=== PATIENT | female | born 1965 | race Two or more races ===

== ENCOUNTER → 2016-08-21 | Outpatient (CLI) | payer OTHER | LOC: BMCIMAGING 14:41 | PROVIDERS: ATTEND Family Medicine | DX: Z12.31 Encounter for screening mammogram for malignant neoplasm of breast (principal) | CPT/HCPCS: G0202 ==

== ENCOUNTER 2016-11-12 11:44 | Emergency (ER) | payer OTHER ==
--- NOTE | 2016-11-12 13:17 | CPEKG ---
Heart Rate: 54 RR Interval: 1111 P-R Interval: 160 QRSD Interval: 78 QT Interval: 420 QTC Interval: 398 P Marion: 54 QRS Marion: -70 T Wave Marion: 17 EKG Severity - ABNORMAL ECG - EKG Impression: SINUS RHYTHM EKG Impression: LEFT ANTERIOR FASCICULAR BLOCK Electronically Signed By: Danis Harris 12-Nov-2016 22:16:44
--- NOTE | 2016-11-12 13:34 | EDPHY ---
H & P Time Seen by Provider: 11/12/16 13:34 HPI/ROS: Chief complaint. Dizzy HPI. 51-year-old female presents emergency department with sense of dizziness. This is been going on for several weeks. She does have some sense of movement. She also feels that it got worse she could pass out. Her dizziness does seem to be worse with position and head movement. She also notes over the past several weeks cold hands, fatigue, occasionally shaky, occasionally weak. Denies fever cough. Some sense of chest fullness but. No shortness of breath. Abdominal no unusual leg symptoms. No fever cough she did return from [place] 4 days ago with but her symptoms were preceding her trip. No similar symptoms previously. She did recently get a new contact lens prescription an wonders if this could cause her dizziness however she has dizziness even when she has removed her new contacts. ROS Constitutional. Occasional weakness Eyes. no problems with vision ENT. no sore throat, no nasal drainage Cardiovascular. Chest fullness Respiratory. No shortness of breath Abdominal. no abdominal pain, no nausea/vomiting, no diarrhea . no problems urinating MS. no calf pain/swelling, no neck/back pain, no joint pain Skin. no rash Lymph. no swollen glands Neuro. Dizziness Past Medical/Surgical History: Hypothyroid Family history significant for autoimmune disease, hypertension, diabetes Social History: , nonsmoker, no alcohol Smoking Status: Never smoked Physical Exam: General Appearance: Alert pleasant well-developed female mild distress vital signs are stable Eyes: Pupils equal and round no pallor or injection. ENT, Mouth: Mucous membranes are moist. Respiratory: There are no retractions, lungs are clear to auscultation. Cardiovascular: Regular rate and rhythm. Gastrointestinal: Abdomen is soft and nontender, no masses, bowel sounds normal. Neurological: Awake and alert, sensory and motor exams grossly normal. Skin: Warm and dry, no rashes. Musculoskeletal: Neck is supple nontender. Extremities symmetrical, full range of motion. Psychiatric: Patient is oriented X 3, there is no agitation. Constitutional: Initial Vital Signs Temperature (C) 36.8 C 11/12/16 11:49 Heart Rate 65 11/12/16 11:49 Respiratory Rate 20 11/12/16 11:49 Blood Pressure 147/85 H 11/12/16 11:49 O2 Sat (%) 98 11/12/16 11:49 O2 Delivery Mode Room Air Allergies/Adverse Reactions: tetracycline Allergy (Verified 11/12/16 11:46) Home Medications: Medication Instructions Recorded ARMMARINO THYROID 11/12/16 Medical Decision Making - Diagnostics EKG Interpretation: EKG interpreted by me shows normal sinus rhythm with normal interval. There is left axis deviation and left anterior fascicular block pattern. QRS is otherwise normal. No significant ST elevation or depression. No arrhythmia. The rate is 54 Imaging Results: Imaging Impressions Chest X-Ray 11/12/16 13:54 Impression: Negative portable chest. One-view chest x-ray interpreted by me is normal Procedures: IV normal saline. Meclizine by mouth ED Course/Re-evaluation: Recheck at 3:45 p.m.--patient feeling better and no symptoms now. No dizziness. No chest discomfort or trouble breathing. No abdominal pain. Patient and I discussed laboratory imaging and EKG evaluation. We discussed treatment plan including criteria for return importance of follow-up further evaluation. She expresses understanding and agreement Differential Diagnosis: I considered pulmonary embolus, acute coronary syndrome, electrolyte abnormality , hyperthyroidism - Data Points Laboratory Results: Laboratory Results 11/12/16 13:20 11/12/16 13:20 11/12/16 11/12/16 11/12/16 13:20 13:20 13:20 WBC RBC Hgb Hct MCV MCH MCHC RDW Plt Count MPV Neut % (Auto) Lymph % (Auto) [place] % (Auto) Eos % (Auto) Baso % (Auto) Nucleat RBC Rel Count Absolute Neuts (auto) Absolute Lymphs (auto) Absolute Monos (auto) Absolute Eos (auto) Absolute Basos (auto) Absolute Nucleated RBC Immature Gran % Immature Gran # D-Dimer < 0.27 ug/mLFEU ug/mLFEU (0.00-0.50) Sodium 135 mEq/L mEq/L (134-144) Potassium 4.1 mEq/L mEq/L (3.5-5.2) Chloride 102 mEq/L mEq/L (97-110) Carbon Dioxide 23 mEq/l mEq/l (22-31) Anion Gap 10 mEq/L mEq/L (8-16) BUN 9 mg/dL mg/dL (7-23) Creatinine 0.8 mg/dL mg/dL (0.6-1.0) Estimated GFR > 60 Glucose 91 mg/dL mg/dL (70-100) Calcium 9.9 mg/dL mg/dL (8.5-10.4) Troponin I < 0.012 ng/mL ng/mL (0-0.034) TSH 2.180 uIU/mL uIU/mL (0.465-4.680) 11/12/16 13:20 WBC 10.21 10^3/uL H 10^3/uL (3.80-9.50) RBC 5.13 10^6/uL 10^6/uL (4.18-5.33) Hgb 15.2 g/dL g/dL (12.6-16.3) Hct 44.6 % % (38.0-47.0) MCV 86.9 fL fL (81.5-99.8) MCH 29.6 pg pg (27.9-34.1) MCHC 34.1 g/dL g/dL (32.4-36.7) RDW 12.1 % % (11.5-15.2) Plt Count 208 10^3/uL 10^3/uL (150-400) MPV 10.8 fL fL (8.7-11.7) Neut % (Auto) 75.7 % H % (39.3-74.2) Lymph % (Auto) 18.8 % % (15.0-45.0) [place] % (Auto) 4.5 % % (4.5-13.0) Eos % (Auto) 0.3 % L % (0.6-7.6) Baso % (Auto) 0.5 % % (0.3-1.7) Nucleat RBC Rel Count 0.0 % % (0.0-0.2) Absolute Neuts (auto) 7.73 10^3/uL H 10^3/uL (1.70-6.50) Absolute Lymphs (auto) 1.92 10^3/uL 10^3/uL (1.00-3.00) Absolute Monos (auto) 0.46 10^3/uL 10^3/uL (0.30-0.80) Absolute Eos (auto) 0.03 10^3/uL 10^3/uL (0.03-0.40) Absolute Basos (auto) 0.05 10^3/uL 10^3/uL (0.02-0.10) Absolute Nucleated RBC 0.00 10^3/uL 10^3/uL (0-0.01) Immature Gran % 0.2 % % (0.0-1.1) Immature Gran # 0.02 10^3/uL 10^3/uL (0.00-0.10) D-Dimer Sodium Potassium Chloride Carbon Dioxide Anion Gap BUN Creatinine Estimated GFR Glucose Calcium Troponin I TSH Medications Given: Discontinued Medications Sodium Chloride (Ns) 1,000 mls @ 0 mls/hr IV EDNOW ONE; Wide Open PRN Reason: Protocol Stop: 11/12/16 13:55 Last Admin: 11/12/16 14:00 Dose: 1,000 mls Meclizine HCl (Meclizine Hcl) 25 mg PO EDNOW ONE Stop: 11/12/16 13:55 Last Admin: 11/12/16 14:00 Dose: 25 mg Departure - Departure Disposition: Home, Routine, Self-Care Clinical Impression: Vertigo Condition: Good Instructions: Vertigo (ED) Additional Instructions: Drink plenty of fluids and stay hydrated. Meclizine as needed for dizziness. Return for worsening symptoms. Recheck by Dr. Cooper in 2-3 days if not improving Referrals: Rossi Cooper MD [Primary Care Provider] - 2-3 days, if not improved
[2016-11-12] MEDS ORDERED: NS 1,000 ML IV ONE (13:54)
[2016-11-12] MEDS ORDERED: MECLIZINE HCL 25 MG TAB PO ONE (13:54)
[2016-11-12 14:06] LABS: % IMMATURE GRANULYOCYTES 0.2 % (0.0-1.1); ABSOLUTE IMMATURE GRANULOCYTES 0.02 10^3/uL (0.00-0.10); ADD DIFF? NO; ADD MORPH? NO; ADD SCAN? NO; ATYPICAL LYMPHOCYTE FLAG 0 (0-99); FRAGMENT RBC FLAG 0 (0-99); HEMATOCRIT 44.6 % (38.0-47.0); HEMOGLOBIN 15.2 g/dL (12.6-16.3); LEFT SHIFT FLG 0 (0-99); LIPEMIA HEMOLYSIS FLAG 90 (0-99); MEAN CELL HEMOGLOBIN 29.6 pg (27.9-34.1); MEAN CELL HEMOGLOBIN CONCENTR. 34.1 g/dL (32.4-36.7); MEAN CELL VOLUME 86.9 fL (81.5-99.8); MEAN PLATELET VOLUME 10.8 fL (8.7-11.7); PLATELET CLUMPS FLAG 0 (0-99); PLATELET COUNT 208 10^3/uL (150-400); RED BLOOD CELL COUNT 5.13 10^6/uL (4.18-5.33); RED CELL DISTRIBUTION WIDTH 12.1 % (11.5-15.2)
[2016-11-12 14:26] LABS: ANION GAP 10 mEq/L (8-16); CALCIUM 9.9 mg/dL (8.5-10.4); CARBON DIOXIDE 23 mEq/l (22-31); CHLORIDE 102 mEq/L (97-110); CREATININE 0.8 mg/dL (0.6-1.0); GLOMERULAR FILTRATION RATE > 60; GLUCOSE 91 mg/dL (70-100); POTASSIUM 4.1 mEq/L (3.5-5.2); SODIUM 135 mEq/L (134-144)
[2016-11-12 14:37] LABS: TROPONIN I < 0.012 ng/mL (0-0.034)
[2016-11-12 15:36] VITALS: PULSE 58
[2016-11-12 16:11] VITALS: BP 122/81; RESP 21; TEMP 98.1; O2SAT 97
== END 2016-11-12 16:11 | disposition home or self-care (01) ==
DX: R42 Dizziness and giddiness (principal); E86.9 Volume depletion, unspecified

== ENCOUNTER → 2018-06-17 | Outpatient (CLI) | payer OTHER | LOC: BMCIMAGING 09:20 | PROVIDERS: ATTEND Family Medicine | DX: M53.3 Sacrococcygeal disorders, not elsewhere classified (principal) ==

== ENCOUNTER → 2018-07-06 | Outpatient (CLI) | payer OTHER | LOC: BMCIMAGING 08:36 | PROVIDERS: ATTEND Family Medicine | DX: Z12.31 Encounter for screening mammogram for malignant neoplasm of breast (principal) ==